=== PATIENT | male | born 1975 ===

== ENCOUNTER 2018-01-04 23:12 | Emergency (ER) | payer SELFPAY ==
[2018-01-04 23:25] VITALS: BMI 38.3
[2018-01-04 23:32] VITALS: BP 157/95; PULSE 66; RESP 16; TEMP 98.6; O2SAT 97
--- NOTE | 2018-01-05 00:23 | ED PDOC ---
Arrival/HPI - General Chief Complaint: Lower Extremity Problem/Injury Time Seen by Provider: 01/05/18 00:07 Historian: Patient - History of Present Illness Narrative History of Present Illness (Text): 01/05/18 00:05 42 year old male, with no significant past medical history, presents to the emergency department complaining of superficial swelling near the posterior left ankle site of pervious skin abrasion and superficial infection. Patient had developed a blister to the area a week ago for which was treated with a topical medication. Patient developed a scab to the area which is healing. Patient has been standing a lot and noted some slight swelling to the area of the ankle as mention which she states has now gone down. Patient was concerned of possible infection to area. He denies any recent travel. Patient denies any fever, chills, chest pain, shortness of breath, nausea, vomiting, diarrhea, urinary symptoms, back pain, neck pain, headache, dizziness, or any other complaints. Time/Duration: 1 week Symptom Onset: Gradual Symptom Course: Unchanged Activities at Onset: Light Context: Home Past Medical History - Provider Review Nursing Documentation Reviewed: Yes - Infectious Disease Hx of Infectious Diseases: None Family/Social History - Physician Review Nursing Documentation Reviewed: Yes Family/Social History: No Known Family HX Allergies/Home Meds Allergies/Adverse Reactions: Allergies No Known Allergies Allergy (Unverified 01/05/18 00:18) Review of Systems - Physician Review All systems were reviewed & negative as marked: Yes - Review of Systems Constitutional: absent: Fevers, Other (Chills) Respiratory: absent: SOB Cardiovascular: absent: Chest Pain Gastrointestinal: absent: Diarrhea, Nausea, Vomiting Genitourinary Male: absent: Dysuria, Frequency, Hematuria Musculoskeletal: absent: Back Pain, Neck Pain Neurological: absent: Headache, Dizziness Physical Exam Vital Signs Reviewed: Yes Vital Signs Temp Pulse Resp BP Pulse Ox 01/04/18 23:25 98.6 F 66 16 157/95 H 97 Temperature: Afebrile Blood Pressure: Hypertensive Pulse: Regular Respiratory Rate: Normal Appearance: Positive for: Well-Appearing, Non-Toxic, Comfortable Pain Distress: None Mental Status: Positive for: Alert and Oriented X 3 - Systems Exam Head: Present: Atraumatic, Normocephalic Pupils: Present: PERRL Extroacular Muscles: Present: EOMI Conjunctiva: Present: Normal Mouth: Present: Moist Mucous Membranes Neck: Present: Normal Range of Motion Respiratory/Chest: Present: Clear to Auscultation, Good Air Exchange. No: Respiratory Distress, Accessory Muscle Use Cardiovascular: Present: Regular Rate and Rhythm, Normal S1, S2. No: Murmurs Abdomen: No: Tenderness, Distention, Peritoneal Signs Back: Present: Normal Inspection Upper Extremity: Present: Normal Inspection. No: Cyanosis, Edema Lower Extremity: Present: Neurovascularly Intact, Other. No: Edema, Swelling ( Scabbed area to the left posterial heel surface with minimal surrounding erythema) Neurological: Present: GCS=15, CN II-XII Intact, Speech Normal Skin: Present: Warm, Dry, Normal Color. No: Rashes Psychiatric: Present: Alert, Oriented x 3, Normal Insight, Normal Concentration Medical Decision Making ED Course and Treatment: 01/05/18 00:05 Impression: 42 year old male presents complaining superficial swelling near the posterior left ankle site of pervious skin abrasion and superficial infection from blister that developed a week ago. Plan: -- Keflex -- Reassess and disposition Progress Notes: 01/05/18 00:15 On re-evaluation, patient feels better and is in no acute distress. I have discussed the results and plan with the patient, who expresses understanding. Patient in agreement with plan to be discharged home. Patient is stable for discharge. Patient was instructed to follow up with physician or return if symptoms worsen or new concerning symptoms arise. - Medication Orders Current Medication Orders: Discontinued Medications Cephalexin Monohydrate (Keflex) 500 mg PO ONCE STA PRN Reason: Protocol Stop: 01/05/18 00:20 Last Admin: 01/05/18 00:43 Dose: 500 mg - Scribe Statement The provider has reviewed the documentation as recorded by the Alexa Loza Provider Scribe Attestation: All medical record entries made by the Alexa were at my direction and personally dictated by me. I have reviewed the chart and agree that the record accurately reflects my personal performance of the history, physical exam, medical decision making, and the department course for this patient. I have also personally directed, reviewed, and agree with the discharge instructions and disposition. Disposition/Present on Arrival - Present on Arrival Any Indicators Present on Arrival: No History of DVT/PE: No History of Uncontrolled Diabetes: No Urinary Catheter: No History of Decub. Ulcer: No History Surgical Site Infection Following: None - Disposition Have Diagnosis and Disposition been Completed?: Yes Diagnosis: Abrasion of skin with infection Disposition: HOME/ ROUTINE Disposition Time: 00:27 Patient Plan: Discharge Condition: GOOD Discharge Instructions (ExitCare): Wound Infection Additional Instructions: Apply bacitracin to the area/keep protected with bandaid/avoid any pressure on the area /keep area elevated /take meds as prescribed/follow up with your doctor /any worsening symptoms return to the emergency room Prescriptions: Cephalexin [cephalexin] 500 mg PO BID #14 cap Referrals: PCP,NO [Non-Staff] - Follow up with primary Forms: [employer] (Salvadorean)
== END 2018-01-05 00:45 | disposition home or self-care (01) ==
LOC: ED 23:12 → MERGE 23:12 → ED 01-05 00:45
DX: S90.512D Abrasion, left ankle, subsequent encounter (principal); X58.XXXD Exposure to other specified factors, subsequent encounter

== ENCOUNTER 2018-02-16 18:05 | Emergency (ER) | payer SELFPAY ==
[2018-02-16 18:05] VITALS: BMI 38.3
[2018-02-16] MEDS ORDERED: Sodium Chloride 0.9% 1,000 ML IV STA (18:15)
[2018-02-16] MEDS ORDERED: HYDROmorphone 0.5 mg/0.5 ml ISec IVP STA (18:16)
--- NOTE | 2018-02-16 18:22 | ED PDOC ---
Arrival/HPI - General Chief Complaint: Abdominal Pain Time Seen by Provider: 02/16/18 18:11 Historian: Patient, Spouse - History of Present Illness Narrative History of Present Illness (Text): 02/16/18 18:18 pt p/w + severe left flank/abd pain, mildly radiating downwards towards his pelvic/left testis region, since 2pm today; pt state pain is unbearable at > 10/ 10; pt + very nauseous, with 4-5 episodes of vomiting; + profusely diaphoretic/ chills, no fever sensations, + unable to sit still due to the pain; + bowel urgency but no bowel movement today; pt states no cp/sob/palpitations, no urinary/bowel changes noted recently; no numbness/tingling; pt denied any bleeding/rashes; pt denied fall/trauma/sick contact, no travel; pt is here for further eval; pt's without other complaints. PCP: none Past medical hx: NONE Family hx: no family hx of kidney stones Time/Duration: 1-3 hours Symptom Onset: Sudden Symptom Course: Worsening Quality: Tightness, Stabbing, Throbbing Severity Level: 10, Severe Activities at Onset: Rest Context: Home Past Medical History - Provider Review Nursing Documentation Reviewed: Yes - Travel History Have you recently traveled outside [place] w/in the past 3 mons?: No - Past History Past History: No Previous - Infectious Disease Hx of Infectious Diseases: None - Psychiatric Hx Substance Use: No Family/Social History - Physician Review Nursing Documentation Reviewed: Yes Family/Social History: No Known Family HX Smoking Status: Never Smoked Hx Alcohol Use: Yes Frequency of alcohol use: Socially Hx Substance Use: No Hx Substance Use Treatment: No Allergies/Home Meds Allergies/Adverse Reactions: Allergies No Known Allergies Allergy (Unverified 02/16/18 18:21) Review of Systems - Review of Systems Constitutional: absent: Fatigue, Weight Change, Fevers Eyes: Normal ENT: Normal Respiratory: Normal. absent: SOB, Cough Cardiovascular: Normal. absent: Chest Pain Gastrointestinal: Abdominal Pain, Nausea, Vomiting. absent: Stool Changes, Constipation, Appetite Changes Genitourinary Male: Normal Musculoskeletal: Other (left flank pain). absent: Arthralgias, Neck Pain, Joint Swelling Skin: Normal Neurological: Dizziness Endocrine: Diaphoresis Hemo/Lymphatic: Normal Psychiatric: Normal Physical Exam - Physical Exam Narrative Physical Exam (Text): 02/16/18 18:15 General: alert/awake, GCS = 15, oriented x 3, resting in bed, uncomfortable, cooperative, interactive; moderate-severe distress due to pain Head: NC/AT EYE: PERRLA, EOMI, sclera anicteric, no nystagmus, no photophobia; visual field intact b/l Facial: WNL Oral: uvula/tongue are midline, no exudate/lesions, no drooling/stridor, no dysphonia; intact dentitions; moist oral mucosa NECK: intact ROM, no midline tenderness, no nuchal rigidity, no meningeal signs ; no step off Chest: CTA b/l, no w/r/r; no tachypenia, no accessory muscle use noted Chest Wall: no crepitus, no lesions, no gross deformities, no focal tenderness Cardiac: +S1, +S2, no m/r/r, no tachycardia Abdominal: +BS, soft/nd/nt, well nourished/obese patient; no masses/rebound/ guarding/rigidity; no drummond's sign, no mcburney's point tenderness; no obturator/psoas sign Extremities: intact ROM, strength 5/5 grossly intact in all limbs, neurovasc intact b/l; + ambulatory; reflex +2/2 BACK: no step off, no midline tenderness, NO crepitus, no gross deformities noted; Intact ROM; NO CVAT b/l SKIN: cap refill ~ 1 sec, no ulcerations, no petechiae, no rashes; + profusely diaphoretic; no gross pallor NEURO: CNII-XII WNL, no facial asymmetries, no slurr speech, oriented x 3 NIH stroke scale ~ 0 Psych: normal insight, normal affect; follows command with ease Vital Signs Reviewed: Yes Vital Signs Temp Pulse Resp BP Pulse Ox 02/16/18 18:22 98.0 F 80 19 182/100 H 98 Temperature: Afebrile Blood Pressure: Hypertensive Pulse: Regular Respiratory Rate: Normal Appearance: Positive for: Well-Appearing, Ill-Appearing, Uncomfortable. No: Unkept Pain Distress: Severe Mental Status: Positive for: Alert and Oriented X 3 - Systems Exam Head: Present: Atraumatic, Normocephalic Medical Decision Making ED Course and Treatment: 02/16/18 18:10 Impression: left flank/abd pain with profuse diaphoresis i have consider all the differential diagnosis regarding pt's chief medical complaints/clinical findings, including but are not limited to: r/o stones, r/o uti, unlikely colitis, r/o pancreatitis, unlikely MO A/P: left flank pain - labs - iv - ct - ua - supportive care - observe/reevaluation 02/16/18 19:13 pt felt improve, pt states pain is much more tolerable currently + very nauseous, + vomited x 2 while in the Emergency department pt is currently awaiting diagnostics/lab results 02/16/18 19:40 pt felt improved, pain is now 3-4/10 pt does not feel nauseous, no vomiting currently 02/16/18 21:50 pt is comfortable, resting in bed pt is not in any distress pt tolerated po vital signs improved, but still demonstrate elevated BP pt/family are made aware of his medical results pt is encouraged fluids pt will f/u as directed pt will be discharged home Re-evaluation Time: 18:55 Reassessment Condition: Improving,but remains with symptoms - Lab Interpretations Lab Results: 02/16/18 18:41 02/16/18 18:41 Lab Results 02/16/18 20:05: Urine Color Yellow, Urine Appearance Clear, Urine pH 5.5, Ur Specific Himrod >= 1.030, Urine Protein 30 H, Urine Glucose (UA) Negative, Urine Ketones Negative, Urine Blood Negative, Urine Nitrate Negative, Urine Bilirubin Negative, Urine Urobilinogen 0.2, Ur Leukocyte Esterase Negative, Urine RBC 0 - 2, Urine WBC Negative, Ur Epithelial Cells 0 - 2, Hyaline Casts 0 - 2 02/16/18 18:41: pO2 56 H, VBG pH 7.36, VBG pCO2 43.0, VBG HCO3 24.3, VBG Total CO2 25.6, VBG O2 Sat (Calc) 92.7 H, VBG Base Excess -1.3 L, VBG Potassium 4.1, Sodium 143.0, Chloride 109.0 H, Glucose 137 H, Lactate 3.2 H, FiO2 21.0, Venous Blood Potassium 4.1 02/16/18 18:41: Sodium 148, Chloride 109 H, Potassium 3.8, Carbon Dioxide 22, Anion Gap 21 H, BUN 13, Creatinine 1.2, Est GFR ( Amer) > 60, Est GFR ( Non-Af Amer) > 60, Random Glucose 127 H, Calcium 9.3, Magnesium 2.0, Total Bilirubin 0.9, AST 27, ALT 37, Alkaline Phosphatase 126, Total Protein 7.8, Albumin 4.6, Globulin 3.1, Albumin/Globulin Ratio 1.5, Lipase 79 02/16/18 18:41: WBC 15.2 H, RBC 4.90, Hgb 14.4, Hct 42.2, MCV 86.1, MCH 29.4, MCHC 34.1, RDW 14.0, Plt Count 318, MPV 10.5, Gran % 82.9 H, Lymph % (Auto) 12.6 L, Whitley % (Auto) 3.6, Eos % (Auto) 0.7 L, Baso % (Auto) 0.2, Gran # 12.64 H , Lymph # (Auto) 1.9, Whitley # (Auto) 0.6, Eos # (Auto) 0.1, Baso # (Auto) 0.03 I have reviewed the lab results: Yes Interpretation: Abnormal lab values (elevated WBCs) - RAD Interpretation Narrative RAD Interpretations (Text): 02/16/18 21:20 CT abdomen and pelvis: FINDINGS: Lung bases: Atelectasis posterior lungs. ABDOMEN: Liver: Fatty infiltration of the liver. Gallbladder and bile ducts: Unremarkable. No calcified stones. No ductal dilation. Pancreas: Unremarkable. No ductal dilation. Spleen: Unremarkable. No splenomegaly. Adrenals: Unremarkable. No mass. Kidneys and ureters: Hydronephrosis left kidney due to an obstructing 3 mm stone in the left UVJ. No stones within either kidney or the right ureter. No hydronephrosis on the right. Stomach and bowel: Unremarkable. No obstruction. No mucosal thickening. PELVIS: Appendix: Normal appendix. Bladder: Unremarkable. No stones. Reproductive: Unremarkable as visualized. ABDOMEN and PELVIS: Intraperitoneal space: There is mild inflammation within the mesentery which is a nonspecific finding and may be chronic. No free air. No significant fluid collection. Bones/joints: Postop changes in the proximal right femur. No acute fracture. No dislocation. Soft tissues: Unremarkable. Vasculature: Unremarkable. No abdominal aortic aneurysm. Lymph nodes: Unremarkable. No enlarged lymph nodes. IMPRESSION: Hydronephrosis left kidney due to an obstructing 3 mm stone in the left UVJ Radiology Orders: 02/16/18 18:15 ABD & PELVIS W/O PO OR IV CONT [CT] Stat Materials Planning Analyst: Radiologist - Medication Orders Current Medication Orders: Discontinued Medications Famotidine (Pepcid) 20 mg IVP STAT STA Stop: 02/16/18 18:16 Last Admin: 02/16/18 18:53 Dose: 20 mg IVP Administration Document 02/16/18 18:53 (Rec: 02/16/18 18:53 [id number] Charges for Administration # of IVP Administrations 1 Hydromorphone HCl (Dilaudid) 1 mg IVP STAT STA Stop: 02/16/18 18:17 Last Admin: 02/16/18 18:36 Dose: 1 mg MAR Pain Assessment Document 02/16/18 18:36 RG (Rec: 02/16/18 18:50 [id number] Pain Reassessment Is this a pain reassessment? Yes Pain Scale Used Pain Scale Used Numeric Location Left, Right or Bilateral Left Upper or Lower Lower Pain Location Body Site Abdomen Groin Description Description Sharp Intensity of Pain at present 9 IVP Administration Document 02/16/18 18:36 RG (Rec: 02/16/18 18:50 [id number] Charges for Administration # of IVP Administrations 1 Sodium Chloride (Sodium Chloride 0.9%) 1,000 mls @ 1,000 mls/hr IV .Q1H STA Stop: 02/16/18 19:14 Last Admin: 02/16/18 18:53 Dose: 1,000 mls/hr eMAR Start Stop Document 02/16/18 18:53 RG (Rec: 02/16/18 18:53 [id number] Intravenous Solution Start Date 02/16/18 Start Time 18:53 Ketorolac Tromethamine (Toradol) 30 mg IVP STAT STA Stop: 02/16/18 18:16 Last Admin: 02/16/18 18:53 Dose: 30 mg MAR Pain Assessment Document 02/16/18 18:53 RG (Rec: 02/16/18 18:53 [id number] Pain Reassessment Is this a pain reassessment? Yes IVP Administration Document 02/16/18 18:53 RG (Rec: 02/16/18 18:53 [id number] Charges for Administration # of IVP Administrations 1 Metoclopramide HCl (Reglan) 10 mg IVP STAT STA Stop: 02/16/18 20:51 Morphine Sulfate (Morphine) 6 mg IVP STAT STA Stop: 02/16/18 21:34 Ondansetron HCl (Zofran Inj) 4 mg IVP STAT STA Stop: 02/16/18 18:16 Last Admin: 02/16/18 18:52 Dose: 4 mg IVP Administration Document 02/16/18 18:52 RG (Rec: 02/16/18 18:53 [id number] Charges for Administration # of IVP Administrations 1 Ondansetron HCl (Zofran Inj) 4 mg IVP STAT STA Stop: 02/16/18 19:13 Last Admin: 02/16/18 19:23 Dose: 4 mg IVP Administration Document 02/16/18 19:23 (Rec: 02/16/18 19:23 [id number] Charges for Administration # of IVP Administrations 1 Disposition/Present on Arrival - Present on Arrival Any Indicators Present on Arrival: No History of DVT/PE: No History of Uncontrolled Diabetes: No Urinary Catheter: No History of Decub. Ulcer: No History Surgical Site Infection Following: None - Disposition Have Diagnosis and Disposition been Completed?: Yes Diagnosis: Ureteral colic, Elevated blood pressure reading Disposition: HOME/ ROUTINE Disposition Time: 22:00 Patient Plan: Discharge Patient Problems: Current Active Problems Problem Status Onset Elevated blood pressure reading Acute Ureteral colic Acute Condition: STABLE Discharge Instructions (ExitCare): Renal Colic (DC), High Blood Pressure in Adults Print Language: TAIWANESE Additional Instructions: Make sure to see your doctor in 1-2 days DRINK PLENTY OF FLUIDS take your medications as prescribed RETURN TO ED IF worse pain, cant breath, persistent vomiting, high fever >101- 102 for hours, altered behavior, slurr speech, facial changes, focal weakness ( arm/leg or both), unable to urinate, heavy/persistent bleeding, passing out, chest pain, or other medical emergencies Prescriptions: Ibuprofen [Motrin] 600 mg PO QID PRN #30 tab PRN Reason: Pain, Mild (1-3) Ondansetron ODT [Zofran ODT] 4 mg PO TID PRN #12 odt PRN Reason: Nausea/Vomiting oxyCODONE/Acetaminophen [Percocet 5/325 mg Tab] 1 - 2 tab PO TID PRN #15 tab PRN Reason: Pain, Severe (8-10) Tamsulosin HCl [Flomax] 0.4 mg PO DAILY #7 tab Referrals: Catie Moy MD [Staff Provider] - Follow up with primary Vijay Irwin MD [Staff Provider] - Follow up with primary [employer] [facility] [address] [Outside] - Follow up with primary [facility] [Outside] - [place] up with primary [facility] [place] - Follow up with primary Forms: [employer] (Portuguese)
[2018-02-16 18:27] VITALS: TEMP 98
[2018-02-16 19:15] LABS: BASO # 0.03 K/mm3 (0.0-2.0); BASO % 0.2 % (0.0-3.0); EOS # 0.1 (0.0-0.7); EOS % 0.7 % (1.5-5.0); GRAN # 12.64 (1.4-6.5); GRAN % 82.9 % (50.0-68.0); HEMOGLOBIN 14.4 g/dL (14.0-18.0); LYMPH # 1.9 (1.2-3.4); LYMPH % 12.6 % (22.0-35.0); MEAN CELL VOLUME 86.1 fl (80.0-105.0); MEAN CORPUSCULAR HEMOGLOBIN 29.4 pg (25.0-35.0); MEAN CORPUSCULAR HGB CONC 34.1 g/dl (31.0-37.0); MEAN PLATELET VOLUME 10.5 fl (7.0-11.0); MONO # 0.6 (0.1-0.6); MONO % 3.6 % (1.0-6.0); RBC 4.9 10^6/uL (3.5-6.1); WHITE BLOOD COUNT 15.2 10^3/ul (4.5-11.0)
[2018-02-16 19:28] LABS: VENOUS BLOOD GAS BASE EXCESS -1.3 mmol/L (0.0-2.0); VENOUS BLOOD GAS PO2 56 mm/Hg (30-55); VENOUS BLOOD PH 7.36 (7.32-7.43)
[2018-02-16 19:45] LABS: ALB/GLOB RATIO 1.5 (1.1-1.8); ALBUMIN 4.6 g/dL (3.0-4.8); ALT/SGPT 37 U/L (7-56); AST/SGOT 27 U/L (17-59); BLOOD UREA NITROGEN 13 mg/dL (7-21); CALCIUM 9.3 mg/dL (8.4-10.5); GFR AFRICAN-AMERICAN > 60; GFR NON-AFRICAN AMERICAN > 60; LIPASE 79 U/L (23-300)
[2018-02-16 20:35] LABS: PH,URINE 5.5 (4.7-8.0); URINE APPEARANCE CLEAR (CLEAR); URINE BILIRUBIN NEGATIVE (NEGATIVE); URINE BLOOD NEGATIVE (NEGATIVE); URINE COLOR YELLOW (YELLOW); URINE GLUCOSE (UA) NEGATIVE (NEGATIVE); URINE LEUKOCYTE ESTERASE NEGATIVE Leu/uL (NEGATIVE); URINE PROTEIN 30 mg/dL (<30 mg/dL); URINE UROBILINOGEN 0.2 E.U./dL (<1 E.U./dL)
[2018-02-16 20:51] LABS: URINE HYALINE CAST 0 - 2 /hpf; URINE WBC NEGATIVE /hpf (0-6)
[2018-02-16 20:52] LABS: URINE EPITHELIAL CELLS 0 - 2 /hpf (0-5); URINE RBC 0 - 2 /hpf (0-2)
[2018-02-16 21:44] VITALS: RESP 18; O2SAT 97
[2018-02-16 22:38] VITALS: BP 151/79; PULSE 70
--- NOTE | 2018-02-17 09:43 | CT ---
PROCEDURE: CT Abdomen and Pelvis without intravenous contrast HISTORY: left flank/abd pain, colicky, nausea/vomit COMPARISON: None. TECHNIQUE: Technique. Contrast dose: Radiation dose: Total exam DLP = 1245 mGy-cm. This CT exam was performed using one or more of the following dose reduction techniques: Automated exposure control, adjustment of the mA and/or kV according to patient size, and/or use of iterative reconstruction technique. FINDINGS: LOWER THORAX: Unremarkable. LIVER: Unremarkable. No gross lesion or ductal dilatation. GALLBLADDER AND BILE DUCTS: Unremarkable. PANCREAS: Unremarkable. No gross lesion or ductal dilatation. SPLEEN: Unremarkable. ADRENALS: Unremarkable. No mass. KIDNEYS AND URETERS: 3 millimeter obstructive calculus at the left UVJ with mild left hydroureter and hydronephrosis. VASCULATURE: Unremarkable. No aortic aneurysm. BOWEL: Unremarkable. No obstruction. No gross mural thickening. APPENDIX: Unremarkable. Normal appendix. PERITONEUM: Unremarkable. No free fluid. No free air. LYMPH NODES: Unremarkable. No enlarged lymph nodes. BLADDER: Unremarkable. REPRODUCTIVE: Unremarkable. BONES: No acute fracture. OTHER FINDINGS: Mild mesenteric panniculitis. IMPRESSION: 3 millimeter obstructive calculus at the left UVJ with mild left hydroureter and hydronephrosis.
== END 2018-02-16 22:20 | disposition home or self-care (01) ==
LOC: ED 18:05
DX: N20.1 Calculus of ureter (principal); R03.0 Elevated blood-pressure reading, without diagnosis of hypertension
CPT/HCPCS: 74176; 80053; 81001; 82803; 83690; 83735; 85025; 96374; 96375; 96376; 99284; J1170; J1885; J2270; J2405; J2765; J7030